=== PATIENT | male | born 1965 | race American Indian/Alaskan Native ===

== ENCOUNTER 2017-11-30 08:13 | Outpatient (CLI) | payer MEDICARE ==
--- NOTE | 2017-11-30 11:51 | Ultrasound Report ---
RIGHT UPPER QUADRANT ABDOMINAL ULTRASOUND: 11/30/17 08:13:00 CLINICAL: Abdominal pain. FINDINGS: High-resolution ultrasound demonstrated an enlarged liver with marked diffuse increased echogenicity. The right lobe of the liver measures approximately 20 cm in length. No liver mass identified. However, limited evaluation of the liver due to attenuation of the sound by the echogenic liver. Small caliber hepatic veins and portal veins. A partially contracted gallbladder with no stones. The gall bladder wall measures 1.0 mm in thickness. Normal intrahepatic and extra hepatic bile ducts. The common bile duct measures 5.0 mm diameter. The pancreatic head and proximal body are normal. The pancreatic tail is obscured by bowel gas. The abdominal aorta is obscured by bowel gas. The right kidney measures 9.9 x 5.5 x 4.9cm.A 3.4 cm cyst of the lower pole the right kidney. No renal mass or calculus. No ascites. IMPRESSION: 1. Marked increased echogenicity of the liver consistent with hepatic steatosis. 2. Moderate hepatomegaly. 3. Normal biliary tract with no cholelithiasis or choledocholithiasis. 4. No signs of acute or chronic pancreatitis but limited imaging of the pancreatic tail. 5. A benign 3.4 cm right lower pole renal cyst. 6. No urinary calculus.
== END 2017-11-30 08:14 | disposition home or self-care (01) ==
LOC: SPVWC 08:13
DX: N28.1 Cyst of kidney, acquired (principal); R16.0 Hepatomegaly, not elsewhere classified; K82.0 Obstruction of gallbladder
CPT/HCPCS: 76705